=== PATIENT | female | born 1990 | race Caucasian/White ===

== ENCOUNTER 2017-06-19 21:40 | Emergency (ER) | payer MEDICAID, OTHER ==
[~2017-06-19] VITALS: Ht 170.2 cm; Wt 75.7 kg
[~2017-06-19 21:40] MED LIST: VARE.5 PO; Z.0.BCPILL PO
[2017-06-19] MEDS ORDERED: Prenatal Vitamins PO (22:38)
--- NOTE | 2017-06-19 23:09 | PD ---
HPI Chief Complaint Abdominal pain Date Seen: June 19, 2017 Time Seen: 23:00 Travel History International Travel<30 Days: No Contact w/Intl Traveler<30Days: No Known Affected Area: No History of Present Illness HPI 26-year-old white female at 29 weeks he gets her care and [place] and presents here for evaluation of abdominal pain for 3-4 days, no bleeding, no leakage. No contractions seen on the monitor, heart rate tracing is reactive Weeks Gestation: 29 Para: 0 : 3 History Obstetric History Obstetric History Patient's had 2 elective ABs Past Surgical History Narrative Surgical 2 elective ABs Social History Alcohol Use: No Tobacco Use: Yes Substance Abuse: No Allergies-Medications (Allergen,Severity, Reaction): Coded Allergies: penicillin G (Unverified Allergy, Unknown, UNKNOWN, 06/19/17) YOUNG CHILD Home Meds Reported Medications [ Vitamins] No Conflict Check, 1 TAB PO DAILY 06/19/17 Discontinued Reported Medications Varenicline Tartrate (Chantix) 0.5 Mg Tab, 0.5 MG PO BID, TAB 10/26/15 Miscellaneous ( Control Pills) Tab, 1 TAB PO DAILY for 28 Days, TAB 10/26/15 Review of Systems General / Constitutional: No: Fever, Weight Gain, Chills, Other Eyes: No: Diploplia, Blurred Vision, Visual changes, Pain, Photophobia HENT: No: Headaches, Vertigo, Lightheadedness Cardiovascular: No: Irregular Rhythm, Chest Pain or Discomfort, Palpitations, Tachycardia, Syncope, Varicosities, Edema, Cyanosis Respiratory: No: Cough, Short of Breath, Other Gastrointestinal: Abdominal Pain, No: Nausea, Vomiting, Diarrhea Genitourinary: No: Decreased Urinary Output, Oliguria Musculoskeletal: No: Limited ROM, Weakness, Cramping, Edema, Pain Skin: No Rash, No Itching, No Dryness, No Lumps, No Change in Pigmentation, No Change in Nails, No Alopecia, No Lesions Neurologic: No: Weakness, Dizziness, Syncope, Focal Abnormalities, Coordination Problem, Headache, Slurred Speech, Seizures Psychiatric: No: Depression, Suicidal Ideations, Homicidal Ideation Endocrine: No: Heat Intolerance, Cold Intolerance, Polydipsia, Polyuria, Other Physical Exam Narrative GENERAL: Well-nourished, well-developed patient. SKIN: Warm and dry. HEAD: Normocephalic and atraumatic. EYES: No scleral icterus. No injection or drainage. ENT: No nasal drainage noted. Mucous membranes pink. Airway patent. NECK: Supple, trachea midline. No JVD. CARDIOVASCULAR: Regular rate and rhythm without murmurs, gallops, or rubs. RESPIRATORY: Breath sounds equal bilaterally. No accessory muscle use. BREASTS: Bilateral exam showed no masses , no retractions, no nipple discharge. ABDOMEN/GI: Abdomen soft, non-tender, bowel sounds present, no rebound, no guarding Gravid to [-29] weeks size Fundal Height: [-29] GENITOURINARY: External Genitalia: intact and normal in appearance BUS glands: [-] Cervix: [-post] Dilatation: [0-] Effacement: [-0] Station: [-3] Membranes: [intact ] Uterine Contractions: [-none] FHT's: Category: [1-] Baseline: [-133] Reactive: [R-] Variability: [mod-] Decels: [none-] EXTREMITIES: No cyanosis or edema. BACK: Nontender without obvious deformity. No CVA tenderness. NEUROLOGICAL: Awake and alert. Motor and sensory grossly within normal limits. Five out of 5 muscle strength in all muscle groups. Normal speech. Data Data Labs Urine dip on OB ED is negative MDM Interpretation(s) Patient is a 26-year-old white female at 29 weeks with abdominal and low back pain for several days. Cervix is closed she is not ashley, urine is negative, heart rate tracing is reactive Plan Patient was offered a pain shot for relief of symptoms but she does not want this at this time. Her pain is likely musculoskeletal soft tissue strain at this point, she is encouraged to bedrest at home, p.o. fluids for hydration, Tylenol liberally, heating pad or hot bath for symptom relief. And she is to follow-up with her OB provider Diagnosis Diagnosis: Primary Impression: Abdominal pain during in third trimester Additional Impressions: Low back pain during in third trimester 29 weeks gestation of Disposition: 01 DISCHARGE HOME Condition: Stable Roberto Lee II, MD June 19, 2017 23:09
== END 2017-06-19 23:40 | disposition home or self-care (01) ==
LOC: HOBED 21:40
DX: O26.893 Other specified pregnancy related conditions, third trimester (principal); R10.9 Unspecified abdominal pain; M54.5 Low back pain; Z3A.29 29 weeks gestation of pregnancy
CPT/HCPCS: 99283